=== PATIENT | male | born 1960 | race Caucasian/White ===

== ENCOUNTER 2021-10-30 15:07 | Emergency (ER) | payer MEDICARE, OTHER | END 2021-10-30 18:15 | disposition home or self-care (01) | LOC: ERS 15:07 | DX: M25.562 Pain in left knee (principal); I10 Essential (primary) hypertension; F17.210 Nicotine dependence, cigarettes, uncomplicated; Z79.82 Long term (current) use of aspirin; Z79.899 Other long term (current) drug therapy ==